=== PATIENT | female | born 1970 | race Two or more races ===

== ENCOUNTER 2020-08-26 10:57 | Day surgery (SDC) | payer OTHER ==
[~2020-08-26 10:57] MED LIST: FORTAMET500 MG PO
== END 2020-08-26 18:10 | disposition home or self-care (01) ==
LOC: CIR.AMB 10:57
PROVIDERS: ATTEND Obstetrics & Gynecology
DX: N95.0 Postmenopausal bleeding (principal); Z20.822 Contact with and (suspected) exposure to COVID-19